=== PATIENT | female | born 1995 | race American Indian/Alaskan Native ===

== ENCOUNTER 2016-12-17 01:10 | Emergency (ER) | payer SELFPAY ==
[2016-12-17 01:30] VITALS: BP 141/94
[2016-12-17 02:20] LABS: Basophils % (Auto) 0.9 % (0.0-1.8); Eosinophils % (Auto) 0.8 % (0.0-4.3); Hematocrit 42.5 % (30.3-42.9); Hemoglobin 13.3 gm/dl (10.1-14.3); Mean Corpuscular HGB Conc 31 % (30-34); Platelet Count 301 K/mm3 (140-440); Red Blood Count 6.37 M/mm3 (3.65-5.03); Red Cell Distribution Width 17.6 % (13.2-15.2); White Blood Count 7.6 K/mm3 (4.5-11.0)
[2016-12-17 02:21] LABS: Mean Corpuscular Hemoglobin 21 pg (28-32); Mean Corpuscular Volume 67 fl (79-97)
[2016-12-17 02:24] LABS: Bilirubin,Urine NEG (Negative); Blood,Urine NEG (Negative); Ketones,Urine 80 mg/dL (Negative); Leukocyte Esterase,Urine NEG (Negative); Mucus,Urine FEW /HPF; Nitrite,Urine NEG (Negative); Protein,Urine <15 mg/dL mg/dL (Negative); Urobilinogen,Urine < 2.0 mg/dL (<2.0); WBC,Urine < 1.0 /HPF (0.0-6.0)
[2016-12-17 02:40] LABS: Blood Urea Nitrogen 8 mg/dL (7-17); Calcium 9.4 mg/dL (8.4-10.2); Carbon Dioxide 21 mmol/L (22-30); Glucose 386 mg/dL (65-100)
--- NOTE | 2016-12-19 15:36 | ED Elopement Review ---
ED Pt Elopement review - Results review Lab results: Laboratory Tests 12/17/16 12/17/16 12/17/16 01:19 02:08 02:08 WBC 7.6 RBC 6.37 H Hgb 13.3 Hct 42.5 MCV 67 L MCH 21 L MCHC 31 RDW 17.6 H Plt Count 301 Lymph % (Auto) 33.9 Storey % (Auto) 6.5 Eos % (Auto) 0.8 Baso % (Auto) 0.9 Lymph # 2.6 Storey # 0.5 Eos # 0.1 Baso # 0.1 Seg Neutrophils % 57.9 Seg Neutrophils # 4.4 VBG pH Carbon Dioxide 21 L BUN 8 Creatinine 0.5 L Estimated GFR > 60 BUN/Creatinine Ratio 16.00 Glucose 386 H POC Glucose 408 H Calcium 9.4 Urine Color Urine Turbidity Urine pH Ur Specific Herrick Urine Protein Urine Glucose (UA) Urine Ketones Urine Blood Urine Nitrite Urine Bilirubin Urine Urobilinogen Ur Leukocyte Esterase Urine WBC (Auto) Urine RBC (Auto) U Epithel Cells (Auto) Urine Mucus 12/17/16 12/17/16 02:08 Unknown WBC RBC Hgb Hct MCV MCH MCHC RDW Plt Count Lymph % (Auto) Storey % (Auto) Eos % (Auto) Baso % (Auto) Lymph # Storey # Eos # Baso # Seg Neutrophils % Seg Neutrophils # VBG pH 7.309 L Carbon Dioxide BUN Creatinine Estimated GFR BUN/Creatinine Ratio Glucose POC Glucose Calcium Urine Color Straw Urine Turbidity Clear Urine pH 6.0 Ur Specific Herrick 1.036 H Urine Protein <15 mg/dl Urine Glucose (UA) >=500 Urine Ketones 80 Urine Blood Neg Urine Nitrite Neg Urine Bilirubin Neg Urine Urobilinogen < 2.0 Ur Leukocyte Esterase Neg Urine WBC (Auto) < 1.0 Urine RBC (Auto) 3.0 U Epithel Cells (Auto) 3.0 Urine Mucus Few - Call Back decision Pt Call Back Decision: Call pt to return to ED [facility] (D[facility])
== END 2016-12-17 04:00 | disposition left against medical advice (07) ==
LOC: ED 01:10
DX: R03.0 Elevated blood-pressure reading, without diagnosis of hypertension (principal); E11.9 Type 2 diabetes mellitus without complications; F17.200 Nicotine dependence, unspecified, uncomplicated; Z53.21 Procedure and treatment not carried out due to patient leaving prior to being seen by health care provider
CPT/HCPCS: 36415; 80048; 81001; 82010; 82805; 82962; 85025